=== PATIENT | female | born 1990 | race Caucasian/White ===

== ENCOUNTER → 2017-01-24 | Outpatient (CLI) | payer OTHER ==
--- NOTE | 2017-01-24 15:51 | US ---
EXAMINATION TYPE: US OB anatomy transabd DATE OF EXAM: 01/24/2017 3:16 PM COMPARISON: NONE HISTORY: LGA; G1 TECHNIQUE: Transabdominal (TA) EXAM MEASUREMENTS: GESTATIONAL AGE / DATING Physician Established: (35 weeks/1 day) EDC: 02/27/2017 Dates by LMP: unsure Dates by First Scan: at Physician Office setting Dates by Current Scan for: (35 weeks/3 days) EDC: 02/25/2017 SURVEY IUP: Single PLACENTA: fundal posterior PREVIA: No previa JETHRO: 16.7 cm Normal CERVICAL LENGTH (transabdominal: norm > 3.0cm): 3.2 cm BIOMETRY PRESENTATION: Vertex LIE: Longitudinal BPD: 9.0 cm 36 weeks / 2 days HC: 32.3 cm 36 weeks / 3 days AC: 31.0 cm 34 weeks / 6 days FL: 6.92 cm 35 weeks / 4 days ESTIMATED WEIGHT IN GRAMS: 2659.0 grams ESTIMATED WEIGHT IN LBS/OZ: 5 lbs. 14 oz. WEIGHT PERCENTAGE BASED ON ESTABLISHED DATE: 53.8 % HC/AC: 1.04 FL/AC: 22.34 HEART RATE: 128 bpm RHYTHM: Normal ANATOMY SEEN (within normal limits): * Lateral Vent (< 1 cm) 0.7 cm Midline Falx Four Chamber Heart Stomach Situs Nose / Lips Diaphragm Kidneys (bilateral) Bladder Three Vessel Cord Longitudinal Spine Transverse Spine Legs (bilateral) ANATOMY SEEN (does not appear within normal limits): ANATOMY NOT SEEN: due bone shadowing, head low at cervix, and crowding * Cisterna Magna (< 1.1 cm) cm * Nuchal Fold (< 0.6 cm) cm * Cerebellum (varies with age) cm Choroid Plexus (bilateral) Cavus Septi Pellucidi Outflow tracts: LVOT/RVOT Arms (bilateral) Cord Insert IMPRESSION: Single, viable IUP,35 weeks/3 days,EDC: 02/25/2017, HR 128bpm. Limited anatomy assessment due to adva nced gestational age.
== END | disposition home or self-care (01) ==
LOC: RADUSWWP 14:22
PROVIDERS: ATTEND Obstetrics & Gynecology
DX: O36.63X0 Maternal care for excessive fetal growth, third trimester, not applicable or unspecified (principal); Z3A.35 35 weeks gestation of pregnancy
CPT/HCPCS: 76811

== ENCOUNTER 2017-02-22 06:12 | Inpatient (IN) | payer OTHER ==
--- NOTE | 2017-02-21 17:06 | P.HPOB ---
History of Present Illness H&P Date: 02/21/17 Chief Complaint: Induction of labor This is a 26 y.o. female, 1, para 0, with an estimated date of confinement of 02/27/2017, estimated gestational age of 39-2/7 weeks, who presents to L&D for induction of labor. She has good movement. She has been having lower cramping and lots of back pain. course has been uncomplicated. labs: GC/Chlamydia-neg Toxoplasma-neg Syphilis antibody-neg HIV-NR Blood type-O+ Antibody screen-neg Hepatitis B surface antigen-neg Rubella-immune Quad screen-neg 1 hr. GTT-96 GBS-neg OB Hx: 1st Birth Attendant Hx: No hx STDs Review of Systems Gastrointestinal: Reports abdominal pain (lower cramping) Genitourinary: Reports pelvic pain, Reports Musculoskeletal: bilateral: foot swelling Past Medical History Past Medical History: No Reported History History of Any Multi-Drug Resistant Organisms: None Reported Past Surgical History: Tonsillectomy Additional Past Surgical History / Comment(s): SINUS SURGERY; [place] teeth Past Psychological History: No Psychological Hx Reported Smoking Status: Never smoker Past Alcohol Use History: None Reported Past Drug Use History: None Reported Medications and Allergies Home Medications Medication Instructions Recorded Confirmed Type Cetirizine HCl [Zyrtec] 10 mg PO DAILY 07/24/16 07/24/16 History Allergies Allergy/AdvReac Type Severity Reaction Status Date / Time No Known Allergies Allergy Verified 07/24/16 20:09 Exam Osteopathic Statement: *. No significant issues noted on an osteopathic structural exam other than those noted in the History and Physical/Consult. HEENT: within normal limits Heart: regular rate and rhythm Lungs: clear to auscultation bilaterally Abdomen: , non-tender Cervix: 2 cm/70%/-1, mid position heart tones: 140's by doppler Extremities: 1+ pitting edema Assessment and Plan (1) 39 weeks gestation of Status: Acute Plan: Proceed with oxytocin induction of labor. Expectant management. Epidural anesthesia if desired.
[2017-02-22] MEDS ORDERED: LIDOCAINE 1% (PF) 10 MG/ML (30 ML SDV) SQ PRN (06:26)
[2017-02-22] MEDS ORDERED: METHYLERGONOVINE 0.2 MG/ML 1 ML AMP IM PRN (06:26)
[2017-02-22] MEDS ORDERED: LIDOCAINE 1% 20 ML VIAL (10MG/ML) FOR IV START INTRADERMA PRN (06:26)
[2017-02-22] MEDS ORDERED: OXYTOCIN 10 UNIT/ML 1 ML VIAL IM PRN (06:26)
[2017-02-22] MEDS ORDERED: TERBUTALINE 1 MG/ML VIAL SQ PRN (06:26)
[2017-02-22] MEDS ORDERED: CARBOPROST TROMETHAMINE 250 MCG/ML 1 ML AMP IM PRN (06:26)
[2017-02-22 06:33] LABS: Basophils % (A) 0 %; CH 27.8; Eosinophils # (A) 0.2 k/uL (0-0.7); Eosinophils % (A) 2 %; HCT 35.2 % (34.0-46.0); HDW 3.06; HGB 11.1 gm/dL (11.4-16.0); Hypochromasia Slight; Luc # (Auto) 0.24; Luc % (Auto) 2; Lymphocytes # (A) 2.2 k/uL (1.0-4.8); Lymphocytes % (A) 22 %; MCH 27.5 pg (25.0-35.0); MCHC 31.6 g/dL (31.0-37.0); Mean Platelet Volume 7.9; Monocytes # (A) 0.4 k/uL (0-1.0); Monocytes % (A) 4 %; Neutrophils % (A) 69 %; RBC 4.04 m/uL (3.80-5.40); RDW 13.8 % (11.5-15.5); WBC 10.2 k/uL (3.8-10.6); WBC (Perox) 10.29
[2017-02-22] MEDS ORDERED: OXYTOCIN 30 UNITS/500 ML NS 30 UNIT in SALINE 1 500ML.BAG IV SCH (06:45)
[2017-02-22] MEDS: LACTATED RINGERS 1,000 ML IV SCH ×2 (06:49→11:22)
[2017-02-22] MEDS ORDERED: fentaNYL (PF) 50 MCG/ML 5 ML AMP ONE (11:12)
[2017-02-22] MEDS ORDERED: BUPIVACAINE (PF) 0.25% 30 ML VIAL ONE (11:12)
[2017-02-22] MEDS ORDERED: SODIUM CHLORIDE 0.9% 100 ML BAG ONE (11:12)
[2017-02-22] MEDS ORDERED: BUPIVACAINE (PF) 0.25% 25 ML, fentaNYL (PF) 200 MCG in SODIUM CHLORIDE 0.9% 71 ML EPIDURAL ONE (11:27)
[2017-02-22] MEDS ORDERED: diphenhydrAMINE 50 MG CAP PO PRN (16:44)
[2017-02-22] MEDS ORDERED: SIMETHICONE 80 MG CHEWABLE PO PRN (16:44)
[2017-02-22] MEDS ORDERED: diphenhydrAMINE 25 MG CAP PO PRN (16:44)
[2017-02-22] MEDS ORDERED: ACETAMINOPHEN TAB 325 MG TAB PO PRN (16:44)
[2017-02-22] MEDS ORDERED: BENZOCAINE/MENTHOL SPRAY 1 GM/SPRAY AEROSOL TOPICAL PRN (16:44)
[2017-02-22] MEDS ORDERED: WITCH HAZEL 1 EACH MED..PAD TOPICAL PRN (16:44)
[2017-02-22] MEDS ORDERED: Acetaminophen-Codeine 300-30mg TAB PO PRN ×2 (16:44)
[2017-02-22] MEDS ORDERED: ZOLPIDEM 5 MG TAB PO PRN (16:44)
[2017-02-22] MEDS ORDERED: HYDROCORTISONE 2.5% RECTAL CREAM 30 GM TUBE RECTAL PRN (16:44)
[2017-02-22] MEDS ORDERED: diphenhydrAMINE 50 MG/ML 1 ML VIAL IVP PRN ×2 (16:44)
[2017-02-22] MEDS ORDERED: LANOLIN CREAM 5 GM TUBE TOPICAL PRN (16:44)
--- NOTE | 2017-02-22 16:56 | P.PROBDLV ---
Vaginal Delivery Note - . Vaginal Delivery Note: The patient progressed to complete dilation after oxytocin induction of labor and artificial rupture membranes with clear fluid noted. She did receive epidural anesthesia. After reaching complete dilation she began pushing. Infant's head came to a crown. Perineum was anesthetized with 1% lidocaine and a midline episiotomy was cut. With one further push, the 's head delivered across the perineum followed by the anterior shoulder. Nose and mouth were bulb suctioned at the perineum. With one remaining push, the remainder the infant easily delivered and was placed on mother's abdomen. Brisk cry was noted immediately. Cord was clamped and cut and infant was taken to warmer for evaluation. A viable male infant was noted with scores of 9 at 1 minute and 9 at 5 minutes and weight of 8 lbs. 0 oz. Placenta delivered shortly thereafter, intact, with a three-vessel cord. Uterus contracted fairly well after oxytocin was given and uterine massage was carried out. Inspection of the perineum revealed a midline episiotomy with no further extension. This area was anesthetized with 1% lidocaine and then sutured with 3 -0 and 2-0 Vicryl suture in the usual multilayer fashion. Estimated blood loss was approximate 200 mL's. Both mother and infant are in stable condition.
[2017-02-22] MEDS: IBUPROFEN 600 MG TAB PO PRN (16:58)
[2017-02-22] MEDS: SENNOSIDES-DOCUSATE SODIUM 1 EACH TAB PO SCH (20:06)
[2017-02-22] MEDS ORDERED: IBUPROFEN 600 MG TAB PO ONE (23:50)
[2017-02-23] MEDS: IBUPROFEN 600 MG TAB PO PRN ×2 (06:59→13:08)
[2017-02-23] MEDS: SENNOSIDES-DOCUSATE SODIUM 1 EACH TAB PO SCH (07:33)
[2017-02-23 07:34] LABS: Basophils % (A) 0 %; CH 27.2; CHCM 31.4; Eosinophils # (A) 0.1 k/uL (0-0.7); Eosinophils % (A) 0 %; HCT 32.2 % (34.0-46.0); HDW 3.01; HGB 10.3 gm/dL (11.4-16.0); Hypochromasia Moderate; Luc # (Auto) 0.36; Luc % (Auto) 2; Lymphocytes # (A) 2.8 k/uL (1.0-4.8); Lymphocytes % (A) 17 %; MCH 27.6 pg (25.0-35.0); MCHC 31.8 g/dL (31.0-37.0); MCV 86.8 fL (80.0-100.0); Mean Platelet Volume 7.5; Monocytes # (A) 0.7 k/uL (0-1.0); Monocytes % (A) 4 %; Neutrophils % (A) 76 %; RBC 3.72 m/uL (3.80-5.40); RDW 13.6 % (11.5-15.5); WBC 17.1 k/uL (3.8-10.6); WBC (Perox) 17.89
--- NOTE | 2017-02-23 08:58 | P.DS ---
Providers Date of admission: 02/22/17 06:12 Expected date of discharge: 02/23/17 Attending physician: Sophie Mendoza Primary care physician: Paul Pringleeldor - Discharge Diagnosis(es) (1) 39 weeks gestation of Current Visit: Yes Status: Acute Hospital Course: This is a 26-year-old female 1 para 0 at 39-2/7 weeks who presented for induction of labor. She underwent oxytocin induction of labor and delivered vaginally a viable male on 02/22/2017 with scores of 9 at 1 minute and 9 at 5 minutes and infant weight of 8 lbs. 0 oz. Post course has been uncomplicated. She is breast-feeding. Lochia is decreasing. Pain is fairly well controlled with ibuprofen. She is breast-feeding. Vital signs are stable. Abdomen is soft with fundus firm and nontender. Extremities show negative Homans. Impression is status post vaginal delivery day #1. Plan is to discharge home today. Routine instructions are given. She is advised to follow up in the office in 6 weeks for a check. She will be given a prescription for ibuprofen. She already has a breast pump at home. She is advised to call the office if she has any further questions or concerns prior to her appointment time. Procedures: Oxytocin induction of labor Spontaneous vaginal delivery of a viable male infant on 02/22/2017 Patient Condition at Discharge: Stable Plan - Discharge Summary New Discharge Prescriptions: Ibuprofen [Motrin] 600 mg PO Q6HR PRN #60 tab PRN Reason: Mild Pain Or Fever >= 100.5 Discharge Medication List Cetirizine HCl [Zyrtec] 10 mg PO DAILY 07/24/16 [History] Ibuprofen [Motrin] 600 mg PO Q6HR PRN #60 tab 02/23/17 [Rx] Follow up Appointment(s)/Referral(s): Sophie Mendoza DO [Doctor of Osteopathic Medicine] - 6 Weeks Activity/Diet/Wound Care/Special Instructions: Instructions 1. Do not begin any exercise program for 3 weeks. 2. Do not resume sexual relations for 3 weeks or longer if uncomfortable. 3. You may take tub baths or showers at any time. 4. You may use tampons if desired after 3 weeks. 5. Keep the area of episiotomy (stitches) clean and dry. 6. If you are not nursing, wear a good fitting, supportive bra during the day and limit fluid intake for at least 1 week to prevent breast engorgement. 7. Call the office, [phone], within the next week to make appointment for your 6 week checkup if it has not already been made. 8. Report any of the following occurrences to the doctor promptly: a. Heavy, excessive bleeding b. Chills, fever c. Burning or frequency of urination d. Pain or redness and breasts if nursing e. Increasing pain or swelling in episiotomy (stitches). In addition to the above instructions, the following additional should be followed: 1. No heavy lifting or straining (exercising) until after 6 week checkup. 2. Keep abdominal incision clean and dry: You may wear a dressing if more comfortable. 3. Make office appointment for 10 days after going home or as instructed by her doctor. Discharge Disposition: HOME SELF-CARE
[2017-02-23 12:11] VITALS: BP 145/75; PULSE 81; RESP 18; TEMP 98.2
== END 2017-02-23 17:00 | disposition home or self-care (01) | DRG 775 ==
LOC: 4FBP 06:12
PROVIDERS: ADMIT Obstetrics & Gynecology; ATTEND Obstetrics & Gynecology
PROC: 10E0XZZ Delivery of Products of Conception, External Approach (ICD-10-PCS; principal; 2017-02-22)
PROC: 0W8NXZZ Division of Female Perineum, External Approach (ICD-10-PCS; 2017-02-22)
PROC: 10907ZC Drainage of Amniotic Fluid, Therapeutic from Products of Conception, Via Natural or Artificial Opening (ICD-10-PCS; 2017-02-22)
PROC: 3E033VJ Introduction of Other Hormone into Peripheral Vein, Percutaneous Approach (ICD-10-PCS; 2017-02-22)
PROC: 3E0S3NZ Introduction of Analgesics, Hypnotics, Sedatives into Epidural Space, Percutaneous Approach (ICD-10-PCS; 2017-02-22)
DX: O80 Encounter for full-term uncomplicated delivery (principal); Z37.0 Single live birth; Z3A.39 39 weeks gestation of pregnancy; Z79.899 Other long term (current) drug therapy
CPT/HCPCS: 85025; 88307

== ENCOUNTER → 2019-01-29 | Outpatient (CLI) | payer OTHER ==
[2019-01-29 17:43] LABS: HCG,Quantitative Serum <2.4 mIU/mL
== END ==
LOC: LABWHC1 16:39
PROVIDERS: ATTEND Obstetrics & Gynecology
DX: N92.6 Irregular menstruation, unspecified (principal)
CPT/HCPCS: 36415; 84439; 84443; 84702

== ENCOUNTER 2019-09-15 15:28 | Emergency (ER) | payer OTHER ==
[2019-09-15 15:53] VITALS: TEMP 97.8
[2019-09-15] MEDS ORDERED: SODIUM CHLORIDE 0.9% 500 ML 500 ML IV STA (16:13)
[2019-09-15] MEDS ORDERED: METOCLOPRAMIDE 5 MG/ML 2 ML VIAL IVP STA (16:13)
[2019-09-15] MEDS ORDERED: diphenhydrAMINE 50 MG/ML 1 ML VIAL IVP STA (16:13)
[2019-09-15] MEDS ORDERED: SODIUM CHLORIDE 0.9% 1,000 ML IV STA (16:13)
[2019-09-15 16:43] LABS: Basophils # (A) 0.1 k/uL (0-0.2); Basophils % (A) 1 %; Eosinophils # (A) 0.1 k/uL (0-0.7); Eosinophils % (A) 2 %; HCT 38.2 % (34.0-46.0); HGB 12.9 gm/dL (11.4-16.0); Lymphocytes # (A) 1.3 k/uL (1.0-4.8); Lymphocytes % (A) 14 %; MCH 28.9 pg (25.0-35.0); MCHC 33.7 g/dL (31.0-37.0); MCV 85.5 fL (80.0-100.0); Mean Platelet Volume 5.9; Monocytes # (A) 0.6 k/uL (0-1.0); Monocytes % (A) 6 %; Neutrophils # (A) 7.1 k/uL (1.3-7.7); Neutrophils % (A) 76 %; Platelet Count 249 k/uL (150-450); RBC 4.46 m/uL (3.80-5.40); RDW 13.3 % (11.5-15.5); WBC 9.4 k/uL (3.8-10.6)
[2019-09-15 16:48] LABS: Amorphous Sediment,Urine Rare /hpf; Appearance,Urine Cloudy (Clear); Bilirubin,Urine Negative (Negative); Blood,Urine Trace (Negative); Color,Urine Yellow; Glucose,Urine (UA) Negative (Negative); Ketones,Urine 3+ (Negative); Leukocyte Esterase,Urine Moderate (Negative); Mucus,Urine Many /hpf; Nitrite,Urine Negative (Negative); Protein,Urine 1+ (Negative); RBC,Urine 7 /hpf (0-5); Squamous Epithelial Cell,Urine 8 /hpf (0-4); WBC,Urine 10 /hpf (0-5)
[2019-09-15 16:53] LABS: ALT 24 U/L (9-52); AST 15 U/L (14-36); African American GFR (CKD) >90 (>60 ml/min/1.73 sqM); Albumin 4.1 g/dL (3.5-5.0); Alkaline Phosphatase 91 U/L (38-126); Amylase 35 U/L (30-110); Anion Gap 10 mmol/L; Blood Urea Nitrogen 7 mg/dL (7-17); Calcium 9.3 mg/dL (8.4-10.2); Carbon Dioxide 22 mmol/L (22-30); Chloride 105 mmol/L (98-107); Glucose 91 mg/dL (74-99); Potassium 3.8 mmol/L (3.5-5.1); Sodium 137 mmol/L (137-145); Total Bilirubin 0.5 mg/dL (0.2-1.3); Total Protein 7.2 g/dL (6.3-8.2)
[2019-09-15] MEDS ORDERED: DEXTROSE 5% IN WATER 1,000 ML IV SCH (17:15)
--- NOTE | 2019-09-15 17:15 | ED ---
Nausea/Vomiting/Diarrhea HPI - General Chief complaint: Nausea/Vomiting/Diarrhea Stated complaint: vomiting/10 wks preg Time Seen by Provider: 09/15/19 15:56 Source: patient Mode of arrival: ambulatory Limitations: no limitations - History of Present Illness Initial comments: 29-year-old female patient presents to the emergency department today for evalu ation of nausea and vomiting. Patient is 10 weeks with her second . Patient states she's been unable to keep down any food or fluids for the last 3 days. Patient states she is having some mild low back pain but denies any abdominal pain, abnormal vaginal bleeding, or abnormal discharge. Patient does have an appointment with her OCEANOGRAPHER ASSISTANT Dr. Mendoza tomorrow. Patient states that she did have severe morning sickness with her last as well. She denies taking any medication for her symptoms. She denies fever or chills but denies any recent travel or sick contacts. She denies diarrhea or constipation. Patient denies any recent rash, shortness breath, chest pain, cons tipation, back pain, numbness, tingling, dizziness, weakness, headache, visual changes, or any other complaints. Patient does report frequency of urination. - Related Data Home Medications Medication Instructions Recorded Confirmed Cetirizine HCl [Zyrtec] 10 mg PO DAILY 07/24/16 09/15/19 Uzy-[id number] Acid 1 cap PO DAILY 09/15/19 09/15/19 [-U Capsule (formulary)] Previous Rx's Medication Instructions Recorded Metoclopramide [Reglan] 10 mg PO Q8H PRN #10 tab 09/15/19 Allergies Allergy/AdvReac Type Severity Reaction Status Date / Time No Known Allergies Allergy Verified 09/15/19 17:46 Review of Systems ROS Statement: Those systems with pertinent positive or pertinent negative responses have been documented in the HPI. ROS Other: All systems not noted in ROS Statement are negative. Past Medical History Past Medical History: No Reported History History of Any Multi-Drug Resistant Organisms: None Reported Past Surgical History: Tonsillectomy Additional Past Surgical History / Comment(s): SINUS SURGERY; [place] teeth Past Anesthesia/Blood Transfusion Reactions: No Reported Reaction Past Psychological History: No Psychological Hx Reported Smoking Status: Never smoker Past Alcohol Use History: None Reported Past Drug Use History: None Reported - Past Family History Mother Family Medical History: No Reported History General Exam Limitations: no limitations General appearance: alert, in no apparent distress, other (This is a well- developed, well-nourished adult female patient in no acute distress. Vital signs upon presentation are temperature 97.8F, pulse 71, respirations 19, blood pressure 122/68, pulse ox 100% on room air.) Eye exam: Present: normal appearance, PERRL, EOMI. Absent: scleral icterus, conjunctival injection, periorbital swelling ENT exam: Present: normal exam, normal oropharynx, mucous membranes moist Respiratory exam: Present: normal lung sounds bilaterally. Absent: respiratory distress, wheezes, rales, rhonchi, stridor Cardiovascular Exam: Present: regular rate, normal rhythm, normal heart sounds. Absent: systolic murmur, diastolic murmur, rubs, gallop, clicks GI/Abdominal exam: Present: soft, normal bowel sounds. Absent: distended, tenderness, guarding, rebound, rigid Back exam: Present: normal inspection. Absent: CVA tenderness (R), CVA tenderness (L) Neurological exam: Present: alert, oriented X3, CN II-XII intact Psychiatric exam: Present: normal affect, normal mood Skin exam: Present: warm, dry, intact, normal color. Absent: rash Course Vital Signs 09/15/19 09/15/19 15:51 19:14 Temperature 97.8 F 97.8 F Pulse Rate 71 72 Respiratory 19 18 Rate Blood Pressure 122/68 114/71 O2 Sat by Pulse 100 98 Oximetry Medical Decision Making - Medical Decision Making 29-year-old female patient presents to the emergency department today for evaluation of nausea and vomiting in . Patient denies any abdominal pain, vaginal bleeding, or discharge. Physical examination reveals soft nontender abdomen. Labs reviewed and are unremarkable. She did have 3+ ketones in the urine. Urine has 10 wbc but there is also contamination. No bacteria. Will send this for culture. Patient did receive IV fluids here in the emergency department. She is feeling better upon reevaluation. She was able to tolerate beef broth and Jell-O. She'll be discharged at this time to follow-up with her OCEANOGRAPHER ASSISTANT for recheck tomorrow. Return parameters discussed in detail. She verbalizes understanding and agrees with this plan. - Lab Data Result diagrams: 09/15/19 16:36 09/15/19 16:36 Lab Results 09/15/19 09/15/19 09/15/19 Range/Units 16:36 16:36 16:36 WBC 9.4 (3.8-10.6) k/uL RBC 4.46 (3.80-5.40) m/uL Hgb 12.9 (11.4-16.0) gm/dL Hct 38.2 (34.0-46.0) % MCV 85.5 (80.0-100.0) fL MCH 28.9 (25.0-35.0) pg MCHC 33.7 (31.0-37.0) g/dL RDW 13.3 (11.5-15.5) % Plt Count 249 (150-450) k/uL Neutrophils % 76 % Lymphocytes % 14 % Monocytes % 6 % Eosinophils % 2 % Basophils % 1 % Neutrophils # 7.1 (1.3-7.7) k/uL Lymphocytes # 1.3 (1.0-4.8) k/uL Monocytes # 0.6 (0-1.0) k/uL Eosinophils # 0.1 (0-0.7) k/uL Basophils # 0.1 (0-0.2) k/uL Sodium 137 (137-145) mmol/L Potassium 3.8 (3.5-5.1) mmol/L Chloride 105 (98-107) mmol/L Carbon Dioxide 22 (22-30) mmol/L Anion Gap 10 mmol/L BUN 7 (7-17) mg/dL Creatinine 0.55 (0.52-1.04) mg/dL Est GFR (CKD-EPI)AfAm >90 (>60 ml/min/1.73 sqM) Est GFR (CKD-EPI)NonAf >90 (>60 ml/min/1.73 sqM) Glucose 91 (74-99) mg/dL Calcium 9.3 (8.4-10.2) mg/dL Total Bilirubin 0.5 (0.2-1.3) mg/dL AST 15 (14-36) U/L ALT 24 (9-52) U/L Alkaline Phosphatase 91 (38-126) U/L Total Protein 7.2 (6.3-8.2) g/dL Albumin 4.1 (3.5-5.0) g/dL Amylase 35 (30-110) U/L Lipase 31 (23-300) U/L Urine Color Yellow Urine Appearance Cloudy H (Clear) Urine pH 6.0 (5.0-8.0) Ur Specific [place] 1.030 (1.001-1.035) Urine Protein 1+ H (Negative) Urine Glucose (UA) Negative (Negative) Urine Ketones 3+ H (Negative) Urine Blood Trace H (Negative) Urine Nitrite Negative (Negative) Urine Bilirubin Negative (Negative) Urine Urobilinogen 2.0 (<2.0) mg/dL Ur Leukocyte Esterase Moderate H (Negative) Urine RBC 7 H (0-5) /hpf Urine WBC 10 H (0-5) /hpf Ur Squamous Epith Cells 8 H (0-4) /hpf Amorphous Sediment Rare H (None) /hpf Urine Mucus Many H (None) /hpf Disposition Clinical Impression: Hyperemesis Disposition: HOME SELF-CARE Condition: Good Instructions (If sedation given, give patient instructions): Hyperemesis Gravidarum (ED) Additional Instructions: Start with clear liquid diet and advance as tolerated. Take medications as directed. Follow-up with your OCEANOGRAPHER ASSISTANT for recheck as you have planned. Return to the emergency department immediately for any new, worsening, or concerning symptoms. Prescriptions: Metoclopramide [Reglan] 10 mg PO Q8H PRN #10 tab PRN Reason: Vomiting Is patient prescribed a controlled substance at d/c from ED?: No Referrals: Paul Marrero DO [Primary Care Provider] - 1-2 days
[2019-09-15 19:15] VITALS: BP 114/71; PULSE 72; RESP 18
== END 2019-09-15 19:15 | disposition home or self-care (01) ==
LOC: EC 15:28
DX: O21.0 Mild hyperemesis gravidarum (principal); Z3A.10 10 weeks gestation of pregnancy
CPT/HCPCS: 36415; 80053; 82150; 83690; 85025; 81001; 87086; 99284; 96374; 96375; 96361 ×2; J1200; J2765

== ENCOUNTER 2019-10-05 17:30 | Emergency (ER) | payer OTHER ==
[2019-10-05 18:01] VITALS: BP 120/65; PULSE 83; RESP 18; TEMP 98.4
[2019-10-05] MEDS ORDERED: PYRIDOXINE 100 MG/ML 1 ML VIAL IVP STA ×2 (18:56)
[2019-10-05] MEDS ORDERED: SODIUM CHLORIDE 0.9% 1,000 ML IV STA (19:00)
--- NOTE | 2019-10-05 19:32 | ED ---
General Adult HPI - General Chief complaint: Nausea/Vomiting/Diarrhea Stated complaint: Dehydration Time Seen by Provider: 10/05/19 18:30 Source: patient, RN notes reviewed, old records reviewed Mode of arrival: ambulatory Limitations: no limitations - History of Present Illness Initial comments: 29-year-old presents to ED nausea and vomiting. Patient reports that for the last 2 days she has not been able to keep anything down. Denies abdominal p ain. Denies any vaginal bleeding. Reports that she. On a ketone strip at home and she is positive for ketones. Denies any other complaints. Systemic: Pt denies fatigue, fever/chills, rash. Pt denies weakness, night sweats, weight loss. Neuro: Pt denies headache, visual disturbances, syncope or pre-syncope. HEENT: Pt denies ocular discharge or irritation, otalgia, rhinorrhea, pharyngitis or notable lymphadenopathy. Cardiopulmonary: Pt denies chest pain, SOB, heart palpitations, dyspnea on exertion. Abdominal/GI: Pt denies abdominal pain, n/v/d. : Pt denies dysuria, burning w/ urination, frequency/urgency. Denies new onset urinary or bowel incontinence. MSK: Pt denies myalgia, loss of strength or function in extremities. Neuro: Pt denies new onset weakness, paresthesias. - Related Data Home Medications Medication Instructions Recorded Confirmed Cetirizine HCl [Zyrtec] 10 mg PO DAILY 07/24/16 09/15/19 Luc-[id number]-Zfesd Acid 1 cap PO DAILY 09/15/19 09/15/19 [-U Capsule (formulary)] Previous Rx's Medication Instructions Recorded Metoclopramide [Reglan] 10 mg PO Q8H PRN #10 tab 09/15/19 Cephalexin [Keflex] 500 mg PO Q12HR 5 Days #10 cap 10/05/19 Allergies Allergy/AdvReac Type Severity Reaction Status Date / Time No Known Allergies Allergy Verified 10/05/19 18:01 Review of Systems ROS Statement: Those systems with pertinent positive or pertinent negative responses have been documented in the HPI. ROS Other: All systems not noted in ROS Statement are negative. Past Medical History Past Medical History: No Reported History History of Any Multi-Drug Resistant Organisms: None Reported Past Surgical History: Tonsillectomy Additional Past Surgical History / Comment(s): SINUS SURGERY; [place] teeth Past Anesthesia/Blood Transfusion Reactions: No Reported Reaction Past Psychological History: No Psychological Hx Reported Smoking Status: Never smoker Past Alcohol Use History: None Reported Past Drug Use History: None Reported - Past Family History Mother Family Medical History: No Reported History General Exam - General Exam Comments Initial Comments: Constitutional: NAD, AOX3, Pt has pleasant affect. HEENT: NC/AT, trachea midline, neck supple, no lymphadenopathy. Posterior p harynx non erythematous, without exudates. External ears appear normal, without discharge. Mucous membranes moist. Eyes PERRLA, EOM intact. There is no scleral icterus. No pallor noted. Cardiopulmonary: RRR, no murmurs, rubs or gallops, no JVD noted. Lungs CTAB in anterior and posterior mattson. No peripheral edema. Abdominal exam: Abdomen soft and non-distended. Abdomen non-tender to palpation in all 4 quadrants. Bowel sounds active in LLQ. No hepatosplenomegaly. No ecchymosis Neuro: CN II-XII grossly intact. No nuchal rigidity. No raccon eyes, no silverman sign, no hemotympanum. No cervical spinal tenderness. MSK: No posterior calf tenderness bilaterally, homans sign negative bilaterally. Posterior tibialis and radial pulse +2 bilaterally. Sensation intact in upper and lower extremities. Full active ROM in upper and lower extremities, 5/5 stregnth. Limitations: no limitations Course Vital Signs 10/05/19 17:58 Temperature 98.4 F Pulse Rate 83 Respiratory 18 Rate Blood Pressure 120/65 O2 Sat by Pulse 98 Oximetry Medical Decision Making - Medical Decision Making 29-year-old presents to ED nausea and vomiting. Patient reports that for the last 2 days she has not been able to keep anything down. Denies abdominal pain. Denies any vaginal bleeding. Reports that she. On a ketone strip at home and she is positive for ketones. Denies any other complaints. Visual signs stable, afebrile. Physical examacute pathology. Abdomen soft, nontender. Labs MSK shows revealed mild leukocytosis of 10.8. Otherwise noncompressive. UA displayed +2 ketones, asymptomatic bacteriuria. Bedside ultrasound performed by myself as well as attending physician Dr. Francis was reassuring. Patient feeling much improved with rehydration of 1.5 L normal saline. Not have any nausea or vomiting. Patient will be discharged will follow-up with primary care per hour return to ER physician worsens. Case discussed with Dr. Francis. - Lab Data Result diagrams: 10/05/19 19:00 10/05/19 19:00 Lab Results 10/05/19 10/05/19 10/05/19 Range/Units 18:46 18:46 19:00 WBC 10.8 H (3.8-10.6) k/uL RBC 4.61 (3.80-5.40) m/uL Hgb 13.4 (11.4-16.0) gm/dL Hct 39.5 (34.0-46.0) % MCV 85.6 (80.0-100.0) fL MCH 29.0 (25.0-35.0) pg MCHC 33.8 (31.0-37.0) g/dL RDW 13.1 (11.5-15.5) % Plt Count 298 (150-450) k/uL Neutrophils % 70 % Lymphocytes % 23 % Monocytes % 4 % Eosinophils % 2 % Basophils % 1 % Neutrophils # 7.6 (1.3-7.7) k/uL Lymphocytes # 2.5 (1.0-4.8) k/uL Monocytes # 0.4 (0-1.0) k/uL Eosinophils # 0.2 (0-0.7) k/uL Basophils # 0.1 (0-0.2) k/uL Sodium (137-145) mmol/L Potassium (3.5-5.1) mmol/L Chloride (98-107) mmol/L Carbon Dioxide (22-30) mmol/L Anion Gap mmol/L BUN (7-17) mg/dL Creatinine (0.52-1.04) mg/dL Est GFR (CKD-EPI)AfAm (>60 ml/min/1.73 sqM) Est GFR (CKD-EPI)NonAf (>60 ml/min/1.73 sqM) Glucose (74-99) mg/dL Calcium (8.4-10.2) mg/dL Total Bilirubin (0.2-1.3) mg/dL AST (14-36) U/L ALT (9-52) U/L Alkaline Phosphatase (38-126) U/L Total Protein (6.3-8.2) g/dL Albumin (3.5-5.0) g/dL Urine Color Yellow Urine Appearance Cloudy H (Clear) Urine pH 7.5 (5.0-8.0) Ur Specific [place] 1.019 (1.001-1.035) Urine Protein 1+ H (Negative) Urine Glucose (UA) Negative (Negative) Urine Ketones 2+ H (Negative) Urine Blood Negative (Negative) Urine Nitrite Negative (Negative) Urine Bilirubin Negative (Negative) Urine Urobilinogen <2.0 (<2.0) mg/dL Ur Leukocyte Esterase Moderate H (Negative) Urine RBC 2 (0-5) /hpf Urine WBC 3 (0-5) /hpf Ur Squamous Epith Cells 5 H (0-4) /hpf Urine Bacteria Occasional H (None) /hpf Hyaline Casts 1 (0-2) /lpf Urine Mucus Many H (None) /hpf Urine HCG, Qual Detected (Not Detectd) 10/05/19 Range/Units 19:00 WBC (3.8-10.6) k/uL RBC (3.80-5.40) m/uL Hgb (11.4-16.0) gm/dL Hct (34.0-46.0) % MCV (80.0-100.0) fL MCH (25.0-35.0) pg MCHC (31.0-37.0) g/dL RDW (11.5-15.5) % Plt Count (150-450) k/uL Neutrophils % % Lymphocytes % % Monocytes % % Eosinophils % % Basophils % % Neutrophils # (1.3-7.7) k/uL Lymphocytes # (1.0-4.8) k/uL Monocytes # (0-1.0) k/uL Eosinophils # (0-0.7) k/uL Basophils # (0-0.2) k/uL Sodium 136 L (137-145) mmol/L Potassium 4.0 (3.5-5.1) mmol/L Chloride 105 (98-107) mmol/L Carbon Dioxide 22 (22-30) mmol/L Anion Gap 9 mmol/L BUN 4 L (7-17) mg/dL Creatinine 0.48 L (0.52-1.04) mg/dL Est GFR (CKD-EPI)AfAm >90 (>60 ml/min/1.73 sqM) Est GFR (CKD-EPI)NonAf >90 (>60 ml/min/1.73 sqM) Glucose 89 (74-99) mg/dL Calcium 9.3 (8.4-10.2) mg/dL Total Bilirubin 0.6 (0.2-1.3) mg/dL AST 20 (14-36) U/L ALT 19 (9-52) U/L Alkaline Phosphatase 93 (38-126) U/L Total Protein 7.0 (6.3-8.2) g/dL Albumin 3.9 (3.5-5.0) g/dL Urine Color Urine Appearance (Clear) Urine pH (5.0-8.0) Ur Specific [place] (1.001-1.035) Urine Protein (Negative) Urine Glucose (UA) (Negative) Urine Ketones (Negative) Urine Blood (Negative) Urine Nitrite (Negative) Urine Bilirubin (Negative) Urine Urobilinogen (<2.0) mg/dL Ur Leukocyte Esterase (Negative) Urine RBC (0-5) /hpf Urine WBC (0-5) /hpf Ur Squamous Epith Cells (0-4) /hpf Urine Bacteria (None) /hpf Hyaline Casts (0-2) /lpf Urine Mucus (None) /hpf Urine HCG, Qual (Not Detectd) Disposition Clinical Impression: Nausea and vomiting during Disposition: HOME SELF-CARE Condition: Stable Instructions (If sedation given, give patient instructions): Nausea and Vo miting in (ED) Additional Instructions: Follow-up with [facility] ANALYST tomorrow. Return to ER if condition worsens. Take meidcation as directed. Prescriptions: Cephalexin [Keflex] 500 mg PO Q12HR 5 Days #10 cap Is patient prescribed a controlled substance at d/c from ED?: No Referrals: Paul Marrero DO [Primary Care Provider] - 1-2 days
[2019-10-05 19:48] LABS: Basophils # (A) 0.1 k/uL (0-0.2); Basophils % (A) 1 %; Eosinophils # (A) 0.2 k/uL (0-0.7); Eosinophils % (A) 2 %; HCT 39.5 % (34.0-46.0); HGB 13.4 gm/dL (11.4-16.0); Lymphocytes # (A) 2.5 k/uL (1.0-4.8); Lymphocytes % (A) 23 %; MCHC 33.8 g/dL (31.0-37.0); MCV 85.6 fL (80.0-100.0); Mean Platelet Volume 5.7; Monocytes # (A) 0.4 k/uL (0-1.0); Monocytes % (A) 4 %; Neutrophils # (A) 7.6 k/uL (1.3-7.7); Neutrophils % (A) 70 %; Platelet Count 298 k/uL (150-450); RBC 4.61 m/uL (3.80-5.40); RDW 13.1 % (11.5-15.5); WBC 10.8 k/uL (3.8-10.6)
[2019-10-05 19:52] LABS: Appearance,Urine Cloudy (Clear); Bacteria,Urine Occasional /hpf; Bilirubin,Urine Negative (Negative); Blood,Urine Negative (Negative); Color,Urine Yellow; Glucose,Urine (UA) Negative (Negative); Hyaline Casts,Urine 1 /lpf (0-2); Ketones,Urine 2+ (Negative); Leukocyte Esterase,Urine Moderate (Negative); Mucus,Urine Many /hpf; Nitrite,Urine Negative (Negative); PH, Urine 7.5 (5.0-8.0); Protein,Urine 1+ (Negative); RBC,Urine 2 /hpf (0-5); Specific Gravity,Urine 1.019 (1.001-1.035); Squamous Epithelial Cell,Urine 5 /hpf (0-4); Urobilinogen,Urine <2.0 mg/dL (<2.0); WBC,Urine 3 /hpf (0-5)
[2019-10-05 19:56] LABS: ALT 19 U/L (9-52); AST 20 U/L (14-36); African American GFR (CKD) >90 (>60 ml/min/1.73 sqM); Albumin 3.9 g/dL (3.5-5.0); Alkaline Phosphatase 93 U/L (38-126); Anion Gap 9 mmol/L; Blood Urea Nitrogen 4 mg/dL (7-17); Calcium 9.3 mg/dL (8.4-10.2); Carbon Dioxide 22 mmol/L (22-30); Chloride 105 mmol/L (98-107); Glucose 89 mg/dL (74-99); Non-African American GFR(CKD) >90 (>60 ml/min/1.73 sqM); Sodium 136 mmol/L (137-145); Total Bilirubin 0.6 mg/dL (0.2-1.3)
[2019-10-05] MEDS ORDERED: SODIUM CHLORIDE 0.9% 500 ML 500 ML IV STA (20:09)
[2019-10-05] MEDS ORDERED: CEPHALEXIN 500 MG CAP PO STA (20:33)
[2019-10-05] MEDS ORDERED: CEPHALEXIN 500MG STARTER PACK 4 CAP BTL PO STA (20:33)
== END 2019-10-05 20:57 | disposition home or self-care (01) ==
LOC: EC 17:30
DX: O21.9 Vomiting of pregnancy, unspecified (principal); O99.111 Other diseases of the blood and blood-forming organs and certain disorders involving the immune mechanism complicating pregnancy, first trimester; D72.829 Elevated white blood cell count, unspecified; O99.89 Other specified diseases and conditions complicating pregnancy, childbirth and the puerperium; R82.71 Bacteriuria; R82.4 Acetonuria; Z79.899 Other long term (current) drug therapy; Z3A.11 11 weeks gestation of pregnancy; Z53.8 Procedure and treatment not carried out for other reasons
CPT/HCPCS: 36415; 80053; 85025; 81001; 81025; 99284; 96374; 96361 ×2; J3415

== ENCOUNTER 2019-10-27 18:33 | Emergency (ER) | payer OTHER ==
[2019-10-27] MEDS ORDERED: METOCLOPRAMIDE 5 MG/ML 2 ML VIAL IVP STA ×2 (19:22→22:30)
[2019-10-27] MEDS ORDERED: SODIUM CHLORIDE 0.9% 2,000 ML IV ONE (19:22)
[2019-10-27] MEDS ORDERED: diphenhydrAMINE 50 MG/ML 1 ML VIAL IVP STA (19:22)
[2019-10-27] MEDS ORDERED: ACETAMINOPHEN TAB 325 MG TAB PO STA (19:24)
[2019-10-27 19:39] LABS: Basophils # (A) 0.1 k/uL (0-0.2); Basophils % (A) 1 %; Eosinophils # (A) 0.1 k/uL (0-0.7); Eosinophils % (A) 0 %; HCT 40.1 % (34.0-46.0); HGB 13.7 gm/dL (11.4-16.0); Lymphocytes # (A) 0.8 k/uL (1.0-4.8); Lymphocytes % (A) 7 %; MCH 29.1 pg (25.0-35.0); MCHC 34.1 g/dL (31.0-37.0); MCV 85.3 fL (80.0-100.0); Mean Platelet Volume 7.3; Monocytes # (A) 0.6 k/uL (0-1.0); Monocytes % (A) 5 %; Neutrophils # (A) 10.2 k/uL (1.3-7.7); Neutrophils % (A) 86 %; Platelet Count 262 k/uL (150-450); RDW 13.2 % (11.5-15.5)
[2019-10-27 19:48] LABS: ALT 13 U/L (4-34); AST 21 U/L (14-36); African American GFR (CKD) >90 (>60 ml/min/1.73 sqM); Albumin 3.9 g/dL (3.5-5.0); Alkaline Phosphatase 103 U/L (38-126); Anion Gap 10 mmol/L; Blood Urea Nitrogen 3 mg/dL (7-17); Calcium 9.4 mg/dL (8.4-10.2); Carbon Dioxide 22 mmol/L (22-30); Chloride 104 mmol/L (98-107); Glucose 102 mg/dL (74-99); Non-African American GFR(CKD) >90 (>60 ml/min/1.73 sqM); Potassium 4.1 mmol/L (3.5-5.1); Sodium 136 mmol/L (137-145); Total Bilirubin 0.7 mg/dL (0.2-1.3); Total Protein 7.2 g/dL (6.3-8.2)
--- NOTE | 2019-10-27 20:05 | XR ---
EXAMINATION TYPE: XR chest 2V DATE OF EXAM: 10/27/2019 COMPARISON: NONE HISTORY: Cough and fever TECHNIQUE: 2 views FINDINGS: Heart and mediastinum are normal. Lungs are clear. Diaphragm is normal. Bony thorax appears normal. IMPRESSION: Normal chest.
[2019-10-27 20:07] LABS: Appearance,Urine Cloudy (Clear); Bilirubin,Urine Negative (Negative); Blood,Urine Small (Negative); Color,Urine Yellow; Glucose,Urine (UA) Negative (Negative); Hyaline Casts,Urine 14 /lpf (0-2); Ketones,Urine 3+ (Negative); Leukocyte Esterase,Urine Negative (Negative); Mucus,Urine Many /hpf; Nitrite,Urine Negative (Negative); Protein,Urine 1+ (Negative); RBC,Urine 1 /hpf (0-5); Specific Gravity,Urine 1.023 (1.001-1.035); Squamous Epithelial Cell,Urine 1 /hpf (0-4); WBC,Urine 6 /hpf (0-5)
[2019-10-27 20:47] VITALS: RESP 16; TEMP 98.8
[2019-10-27] MEDS ORDERED: CEPHALEXIN 500 MG CAP PO STA (22:04)
--- NOTE | 2019-10-27 22:30 | ED ---
General Adult HPI - General Chief complaint: Nausea/Vomiting/Diarrhea Stated complaint: 14 wks preg, +flu, vomiting Time Seen by Provider: 10/27/19 18:50 Source: patient Mode of arrival: ambulatory Limitations: no limitations - History of Present Illness Initial comments: The patient is a 29-year-old female who is currently 14 weeks who presents emergency department under direction by her primary care physician. She states that yesterday she started developing fevers which brought up to 103 at home. She admits to a mild unproductive cough. She denies any chest pain or shortness of breath. Denies any abdominal pain. No abnormal vaginal bleeding or discharge. Denies concern for sexually transmitted infections. Denies dysuria, hematuria or difficulty voiding. Denies constipation or melanotic stools. She does report to nausea which has been persistent throughout her however states that it is worse over the past [address] Mendoza in office. She has been taking Diclegis at night for her nausea which has helped. She has Reglan at home for nausea however has not been taking it. She attempted to take Tylenol at home however vomited it back up. She saw her primary care physician in office today. They did place her on Tamiflu even though she was negative for influenza. She went home and when she did not have improvement in her symptoms she called her OB office. It was her OB that has return to the emergency room for further evaluation. She denies any headaches or visual changes. No neck pain or stiffness. There are no alleviating, precipitating or modifying factors - Related Data Home Medications Medication Instructions Recorded Confirmed Cetirizine HCl [Zyrtec] 10 mg PO DAILY 07/24/16 09/15/19 Tur-Meiy-Pamhj Acid 1 cap PO DAILY 09/15/19 09/15/19 [-U Capsule (formulary)] Previous Rx's Medication Instructions Recorded Metoclopramide [Reglan] 10 mg PO Q8H PRN #10 tab 09/15/19 Cephalexin [Keflex] 500 mg PO Q12HR 5 Days #10 cap 10/05/19 Cephalexin [Keflex] 500 mg PO Q12HR #14 cap 10/27/19 Allergies Allergy/AdvReac Type Severity Reaction Status Date / Time No Known Allergies Allergy Verified 10/27/19 18:48 Review of Systems ROS Statement: Those systems with pertinent positive or pertinent negative responses have been documented in the HPI. ROS Other: All systems not noted in ROS Statement are negative. Past Medical History Past Medical History: No Reported History History of Any Multi-Drug Resistant Organisms: None Reported Past Surgical History: Tonsillectomy Additional Past Surgical History / Comment(s): SINUS SURGERY; [place] teeth Past Anesthesia/Blood Transfusion Reactions: No Reported Reaction Past Psychological History: No Psychological Hx Reported Smoking Status: Never smoker Past Alcohol Use History: None Reported Past Drug Use History: None Reported - Past Family History Mother Family Medical History: No Reported History General Exam Limitations: no limitations General appearance: alert, in no apparent distress Head exam: Present: atraumatic, normocephalic, normal inspection Eye exam: Present: normal appearance, PERRL, EOMI. Absent: scleral icterus, conjunctival injection, periorbital swelling ENT exam: Present: normal exam, mucous membranes moist Neck exam: Present: normal inspection. Absent: tenderness, meningismus, lymphadenopathy Respiratory exam: Present: normal lung sounds bilaterally. Absent: respiratory distress, wheezes, rales, rhonchi, stridor Cardiovascular Exam: Present: regular rate, normal rhythm, normal heart sounds. Absent: systolic murmur, diastolic murmur, rubs, gallop, clicks GI/Abdominal exam: Present: soft, normal bowel sounds. Absent: distended, tenderness, guarding, rebound, rigid Extremities exam: Present: normal inspection, full ROM, normal capillary refill. Absent: tenderness, pedal edema, joint swelling, calf tenderness Back exam: Present: normal inspection Neurological exam: Present: alert, oriented X3, CN II-XII intact Psychiatric exam: Present: normal affect, normal mood Skin exam: Present: warm, dry, intact, normal color. Absent: rash Course Vital Signs 10/27/19 10/27/19 10/27/19 18:48 20:45 22:52 Temperature 99.9 F H 98.8 F Pulse Rate 115 H 87 71 Respiratory 20 16 16 Rate Blood Pressure 129/78 111/54 106/63 O2 Sat by Pulse 98 98 100 Oximetry Medical Decision Making - Medical Decision Making Upon arrival the patient is placed into room 11. Her history of physical exam was performed. Peripheral IV is established. The patient is given 10 mg of Reglan, 25 mg of Benadryl and 2 L of normal saline. I did recommend laboratory studies and a urinalysis. CBC shows a white blood cell count of 12. Sodium is 136. Creatinine 0.5. Glucose 102. Urinalysis shows 3+ ketones, small blood, 6 white blood cells, 14 hyalin casts. Insulin to 18. Negative. Chest x-rays performed because of the patient's report of a cough. A chest x-ray is negative. I discussed results with the patient. She is reevaluated and has marked improvement in her symptoms. She has not had any nausea and vomiting since she's been in the emergency department. She feels comfortable going home at this time. She'll continue taking the day Kimani at night. She is to take Reglan during the day as needed for nausea and vomiting. I do attempt to call Dr. Conner who is on-call for Dr. Mendoza. I do not receive a call back. I informed the patient she must call to make an appointment with her B[facility]CHER OPERATOR and be seen later this week. She has any new or worsening symptoms she should return to the emergency room. The patient was in agreement with the treatment plan and she was discharged home in stable condition - Lab Data Result diagrams: 10/27/19 19:00 10/27/19 19:00 Lab Results 10/27/19 10/27/19 10/27/19 Range/Units 19:00 19:00 19:00 WBC 12.0 H (3.8-10.6) k/uL RBC 4.70 (3.80-5.40) m/uL Hgb 13.7 (11.4-16.0) gm/dL Hct 40.1 (34.0-46.0) % MCV 85.3 (80.0-100.0) fL MCH 29.1 (25.0-35.0) pg MCHC 34.1 (31.0-37.0) g/dL RDW 13.2 (11.5-15.5) % Plt Count 262 (150-450) k/uL Neutrophils % 86 % Lymphocytes % 7 % Monocytes % 5 % Eosinophils % 0 % Basophils % 1 % Neutrophils # 10.2 H (1.3-7.7) k/uL Lymphocytes # 0.8 L (1.0-4.8) k/uL Monocytes # 0.6 (0-1.0) k/uL Eosinophils # 0.1 (0-0.7) k/uL Basophils # 0.1 (0-0.2) k/uL Sodium 136 L (137-145) mmol/L Potassium 4.1 (3.5-5.1) mmol/L Chloride 104 (98-107) mmol/L Carbon Dioxide 22 (22-30) mmol/L Anion Gap 10 mmol/L BUN 3 L (7-17) mg/dL Creatinine 0.50 L (0.52-1.04) mg/dL Est GFR (CKD-EPI)AfAm >90 (>60 ml/min/1.73 sqM) Est GFR (CKD-EPI)NonAf >90 (>60 ml/min/1.73 sqM) Glucose 102 H (74-99) mg/dL Plasma Lactic Acid Kamar 0.9 (0.7-2.0) mmol/L Calcium 9.4 (8.4-10.2) mg/dL Total Bilirubin 0.7 (0.2-1.3) mg/dL AST 21 (14-36) U/L ALT 13 (4-34) U/L Alkaline Phosphatase 103 (38-126) U/L Total Protein 7.2 (6.3-8.2) g/dL Albumin 3.9 (3.5-5.0) g/dL Lipase 18 L (23-300) U/L Urine Color Urine Appearance (Clear) Urine pH (5.0-8.0) Ur Specific [facility] (1.001-1.035) Urine Protein (Negative) Urine Glucose (UA) (Negative) Urine Ketones (Negative) Urine Blood (Negative) Urine Nitrite (Negative) Urine Bilirubin (Negative) Urine Urobilinogen (<2.0) mg/dL Ur Leukocyte Esterase (Negative) Urine RBC (0-5) /hpf Urine WBC (0-5) /hpf Ur Squamous Epith Cells (0-4) /hpf Hyaline Casts (0-2) /lpf Urine Mucus (None) /hpf Influenza Type A RNA (Not Detectd) Influenza Type B (PCR) (Not Detectd) 10/27/19 10/27/19 Range/Units 19:30 19:30 WBC (3.8-10.6) k/uL RBC (3.80-5.40) m/uL Hgb (11.4-16.0) gm/dL Hct (34.0-46.0) % MCV (80.0-100.0) fL MCH (25.0-35.0) pg MCHC (31.0-37.0) g/dL RDW (11.5-15.5) % Plt Count (150-450) k/uL Neutrophils % % Lymphocytes % % Monocytes % % Eosinophils % % Basophils % % Neutrophils # (1.3-7.7) k/uL Lymphocytes # (1.0-4.8) k/uL Monocytes # (0-1.0) k/uL Eosinophils # (0-0.7) k/uL Basophils # (0-0.2) k/uL Sodium (137-145) mmol/L Potassium (3.5-5.1) mmol/L Chloride (98-107) mmol/L Carbon Dioxide (22-30) mmol/L Anion Gap mmol/L BUN (7-17) mg/dL Creatinine (0.52-1.04) mg/dL Est GFR (CKD-EPI)AfAm (>60 ml/min/1.73 sqM) Est GFR (CKD-EPI)NonAf (>60 ml/min/1.73 sqM) Glucose (74-99) mg/dL Plasma Lactic Acid Kamar (0.7-2.0) mmol/L Calcium (8.4-10.2) mg/dL Total Bilirubin (0.2-1.3) mg/dL AST (14-36) U/L ALT (4-34) U/L Alkaline Phosphatase (38-126) U/L Total Protein (6.3-8.2) g/dL Albumin (3.5-5.0) g/dL Lipase (23-300) U/L Urine Color Yellow Urine Appearance Cloudy H (Clear) Urine pH 6.0 (5.0-8.0) Ur Specific [facility] 1.023 (1.001-1.035) Urine Protein 1+ H (Negative) Urine Glucose (UA) Negative (Negative) Urine Ketones 3+ H (Negative) Urine Blood Small H (Negative) Urine Nitrite Negative (Negative) Urine Bilirubin Negative (Negative) Urine Urobilinogen 2.0 (<2.0) mg/dL Ur Leukocyte Esterase Negative (Negative) Urine RBC 1 (0-5) /hpf Urine WBC 6 H (0-5) /hpf Ur Squamous Epith Cells 1 (0-4) /hpf Hyaline Casts 14 H (0-2) /lpf Urine Mucus Many H (None) /hpf Influenza Type A RNA Not Detected (Not Detectd) Influenza Type B (PCR) Not Detected (Not Detectd) Disposition Clinical Impression: Nausea and vomiting during , Dehydration, Abnormal urinalysis, Fever Disposition: HOME SELF-CARE Condition: Stable Instructions (If sedation given, give patient instructions): Acute Nausea and Vomiting (ED) Additional Instructions: Please follow-up with your B[facility]CHER OPERATOR in 2-4 days. Return to the emergency room for any new or worsening symptoms Prescriptions: Cephalexin [Keflex] 500 mg PO Q12HR #14 cap Is patient prescribed a controlled substance at d/c from ED?: No Referrals: Paul Marrero DO [Primary Care Provider] - 1-2 days Sophie Mendoza DO [Doctor of Osteopathic Medicine] - 1-2 days Time of Disposition: 22:31
[2019-10-27 22:54] VITALS: BP 106/63; PULSE 71
== END 2019-10-27 23:13 | disposition home or self-care (01) ==
LOC: EC 18:33
DX: O99.282 Endocrine, nutritional and metabolic diseases complicating pregnancy, second trimester (principal); E86.0 Dehydration; O21.9 Vomiting of pregnancy, unspecified; O99.89 Other specified diseases and conditions complicating pregnancy, childbirth and the puerperium; R82.81 Pyuria; R50.9 Fever, unspecified; R31.9 Hematuria, unspecified; R29.898 Other symptoms and signs involving the musculoskeletal system; R05 Cough; Z3A.14 14 weeks gestation of pregnancy
CPT/HCPCS: 99284; 96374; 96375; 96376; 96361 ×3; 36415; 80053; 83605; 83690; 85025; 81001; 87502; 71046; J1200; J2765

== ENCOUNTER → 2020-04-16 | Outpatient (CLI) | payer OTHER | END | disposition home or self-care (01) | LOC: LABWHC1 11:11 | PROVIDERS: ATTEND Obstetrics & Gynecology | DX: Z11.59 Encounter for screening for other viral diseases (principal) ==

== ENCOUNTER 2020-04-19 00:07 | Inpatient (IN) | payer OTHER ==
--- NOTE | 2020-04-18 15:12 | P.HPOB ---
History of Present Illness H&P Date: 04/18/20 Chief Complaint: Induction of labor This is a 29 y.o. female, 2, para 1, with an estimated date of confinement of 04/25/2020, estimated gestational age of 39-1/7 weeks, who presents for induction of labor. She admits to good movement and irregular contractions. has been uncomplicated. labs: Hepatitis B surface antigen-neg RPR-NR Rubella-immune Blood type-O+ Antibody screen-neg Hemoglobin-11.9 Toxoplasma-neg Random glucose-89 1 hr. GTT-77 GBS-neg OB Hx: . 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 Works at [employer]. Review of Systems Constitutional: Denies chills, Denies fever Eyes: denies blurred vision, denies pain Ears, nose, mouth and throat: Denies headache, Denies sore throat Cardiovascular: Denies chest pain, Denies shortness of breath Respiratory: Denies cough Gastrointestinal: Reports abdominal pain (irregular contractions) Genitourinary: Reports pelvic pain, Reports Musculoskeletal: Reports low back pain Integumentary: Denies pruritus, Denies rash Neurological: Denies numbness, Denies weakness Past Medical History Past Medical History: No Reported History History of Any Multi-Drug Resistant Organisms: None Reported Past Surgical History: Tonsillectomy Additional Past Surgical History / Comment(s): SINUS SURGERY; [place] teeth Past Anesthesia/Blood Transfusion Reactions: No Reported Reaction Past Psychological History: No Psychological Hx Reported Smoking Status: Never smoker Past Alcohol Use History: None Reported Past Drug Use History: None Reported - Past Family History Mother Family Medical History: No Reported History Medications and Allergies Home Medications Medication Instructions Recorded Confirmed Type Cetirizine HCl [Zyrtec] 10 mg PO DAILY 07/24/16 09/15/19 History Kdh-Sehc-Rwijt Acid 1 cap PO DAILY 09/15/19 09/15/19 History [-U Capsule (formulary)] Allergies Allergy/AdvReac Type Severity Reaction Status Date / Time No Known Allergies Allergy Verified 10/27/19 18:48 Exam Osteopathic Statement: *. No significant issues noted on an osteopathic structural exam other than those noted in the History and Physical/Consult. HEENT: within normal limits Heart: regular rate and rhythm Lungs: clear to auscultation bilaterally Abdomen: Cervix: 1.5 cm/70%/-2 heart tones: 140's by doppler Extremities: neg. Savannah's Assessment and Plan (1) 39 weeks gestation of Status: Acute Code(s): Z3A.39 - 39 WEEKS GESTATION OF SNOMED Code(s): 60195299 Plan: Proceed with oxytocin induction of labor. Expectant management. Epidural if desired.
[2020-04-19] MEDS ORDERED: LIDOCAINE 0.5% (PF) 5 MG/ML (50 ML SDV) SQ PRN (00:22)
[2020-04-19] MEDS ORDERED: TERBUTALINE 1 MG/ML VIAL SQ PRN (00:22)
[2020-04-19] MEDS ORDERED: LIDOCAINE 1% (10MG/ML) FOR IV START INTRADERMA PRN (00:22)
[2020-04-19] MEDS ORDERED: OXYTOCIN 30 UNITS/500 ML NS 30 UNIT in SALINE 1 500ML.BAG IV SCH (00:22)
[2020-04-19] MEDS ORDERED: METHYLERGONOVINE 0.2 MG/ML 1 ML AMP IM PRN (00:22)
[2020-04-19] MEDS ORDERED: OXYTOCIN 10 UNIT/ML 1 ML VIAL IM PRN (00:22)
[2020-04-19] MEDS ORDERED: CARBOPROST TROMETHAMINE 250 MCG/ML 1 ML AMP IM PRN (00:22)
[2020-04-19] MEDS ORDERED: BUTORPHANOL 1 MG/ML 1 ML VIAL IV PRN (00:27)
[2020-04-19] MEDS: LACTATED RINGERS 1,000 ML IV SCH ×2 (00:31→04:02)
[2020-04-19 00:50] LABS: Basophils # (A) 0.1 k/uL (0-0.2); Basophils % (A) 0 %; Eosinophils # (A) 0.2 k/uL (0-0.7); Eosinophils % (A) 2 %; HCT 34.5 % (34.0-46.0); HGB 10.7 gm/dL (11.4-16.0); Hypochromasia Slight; Lymphocytes # (A) 2.3 k/uL (1.0-4.8); Lymphocytes % (A) 15 %; MCH 25.2 pg (25.0-35.0); MCHC 31.1 g/dL (31.0-37.0); MCV 80.8 fL (80.0-100.0); Mean Platelet Volume 6.9; Monocytes # (A) 0.6 k/uL (0-1.0); Monocytes % (A) 4 %; Neutrophils # (A) 12.6 k/uL (1.3-7.7); Neutrophils % (A) 78 %; Platelet Count 332 k/uL (150-450); RBC 4.27 m/uL (3.80-5.40); RDW 14.5 % (11.5-15.5)
[2020-04-19] MEDS ORDERED: SODIUM CHLORIDE 0.9% 100 ML BAG ONE (03:42)
[2020-04-19] MEDS ORDERED: ROPIVACAINE 5MG/ML 20ML VIAL ONE (03:42)
[2020-04-19] MEDS ORDERED: fentaNYL (PF) 50 MCG/ML 5 ML AMP ONE (03:42)
[2020-04-19] MEDS ORDERED: HYDROCORTISONE 2.5% RECTAL CREAM 30 GM TUBE RECTAL PRN (08:13)
[2020-04-19] MEDS ORDERED: BENZOCAINE/MENTHOL SPRAY 1 GM/SPRAY AEROSOL TOPICAL PRN (08:13)
[2020-04-19] MEDS ORDERED: diphenhydrAMINE 50 MG/ML 1 ML VIAL IVP PRN ×2 (08:13)
[2020-04-19] MEDS ORDERED: WITCH HAZEL 1 EACH MED..PAD TOPICAL PRN (08:13)
[2020-04-19] MEDS ORDERED: diphenhydrAMINE 25 MG CAP PO PRN (08:13)
[2020-04-19] MEDS ORDERED: LANOLIN CREAM 5 GM TUBE TOPICAL PRN (08:13)
[2020-04-19] MEDS ORDERED: diphenhydrAMINE 50 MG CAP PO PRN (08:13)
[2020-04-19] MEDS ORDERED: ZOLPIDEM 5 MG TAB PO PRN (08:13)
[2020-04-19] MEDS ORDERED: SIMETHICONE 80 MG CHEWABLE PO PRN (08:13)
[2020-04-19] MEDS ORDERED: OXYTOCIN 20 UNITS/1000 ML NS 1,000 ML IV SCH (08:15)
--- NOTE | 2020-04-19 08:17 | P.PROBDLV ---
Vaginal Delivery Note - . Vaginal Delivery Note: 29-year-old presented at 39 weeks and 1 day in active labor. Her water broke at 3:40 AM clear fluid noted. heart tones 130 with moderate variability and reactive. She was 57 m dilated at that time, 80% effaced, -2 station. She is jessica irregularly. She was uncomfortable and did get an epidural. Her cervix is completely dilated at 7:46 AM. She pushed, and delivered a viable male infant over intact perineum under epidural anesthesia at 7:58 AM. Head delivered OA, nuchal cord 1 delivered through, anterior shoulder delivered gentle downward guidance followed by posterior shoulder and rest of body. Nose and mouth bulb suctioned, cord clamped and cut, placed mother's abdomen. Apgars 9, 9, weight 8 lbs. 1 oz. Placenta delivered spontaneously, intact with three-vessel cord at 8 AM. Vagina, cervix, and perineum were inspected. Second-degree midline laceration was repaired with 3-0 Vicryl. Estimated blood loss 150 mL. Mother and baby in stable condition.
[2020-04-19 15:31] VITALS: TEMP 98.1
[2020-04-19] MEDS: IBUPROFEN 600 MG TAB PO PRN ×2 (17:33→23:39)
[2020-04-19] MEDS: SENNOSIDES-DOCUSATE SODIUM 1 EACH TAB PO SCH (20:01)
[2020-04-19] MEDS: ACETAMINOPHEN TAB 325 MG TAB PO PRN (20:33)
[2020-04-20] MEDS: IBUPROFEN 600 MG TAB PO PRN (05:58)
[2020-04-20 06:11] LABS: Basophils % (A) 0 %; Eosinophils # (A) 0.2 k/uL (0-0.7); Eosinophils % (A) 2 %; HCT 29.9 % (34.0-46.0); HGB 9.3 gm/dL (11.4-16.0); Hypochromasia Marked; Lymphocytes # (A) 2.8 k/uL (1.0-4.8); Lymphocytes % (A) 21 %; MCH 25.8 pg (25.0-35.0); MCHC 31.1 g/dL (31.0-37.0); Monocytes # (A) 0.5 k/uL (0-1.0); Monocytes % (A) 4 %; Neutrophils # (A) 9.9 k/uL (1.3-7.7); Neutrophils % (A) 72 %; Platelet Count 287 k/uL (150-450); RDW 14.2 % (11.5-15.5); WBC 13.7 k/uL (3.8-10.6)
[2020-04-20 08:23] VITALS: BP 129/80; PULSE 85; RESP 15
[2020-04-20] MEDS: SENNOSIDES-DOCUSATE SODIUM 1 EACH TAB PO SCH (08:26)
--- NOTE | 2020-04-20 09:27 | P.DS ---
Providers Date of admission: 04/19/20 00:07 Expected date of discharge: 04/20/20 Attending physician: Sophie Mendoza Primary care physician: Paul Pringleeldor - Discharge Diagnosis(es) (1) 39 weeks gestation of Current Visit: No Status: Acute Hospital Course: This is a 29-year-old female 2 para 1 at 39 and one sevenths weeks who presented with contractions. She did receive epidural anesthesia. She delivered vaginally a viable male infant on 04/19/2020 with scores of 9 at 1 minute and 9 at 5 minutes and weight of 8 lbs. 1 oz. Her course has been uncomplicated. Lochia is decreasing. Pain is well-controlled. She is breast-feeding without difficulty. I'll signs are stable. Abdomen is soft with fundus firm and nontender. Extremities show negative Homans. Impression is status post vaginal delivery day #1. Plan is to discharge home today. Routine instructions are given. She is advised follow-up in the office in 6 weeks for a check. She is advised to call the office if she has any further questions or concerns prior to her appointment time. She will be given a prescription for ibuprofen. She has a breast pump at home. Procedures: Spontaneous vaginal delivery of a viable male on 04/19/2020 Patient Condition at Discharge: Stable Plan - Discharge Summary New Discharge Prescriptions: New Ibuprofen [Motrin] 600 mg PO Q6HR PRN #60 tab PRN Reason: Mild Pain Or Fever >= 100.5 Continue [id number]-[id number]-Xkvyv Acid [-U Capsule (formulary)] 1 cap PO DAILY No Action Cetirizine HCl [Zyrtec] 10 mg PO DAILY Discharge Medication List Cetirizine HCl [Zyrtec] 10 mg PO DAILY 07/24/16 [History] Lka-Zmgo-Qjiuk Acid [-U Capsule (formulary)] 1 cap PO DAILY 09/15/19 [History] Ibuprofen [Motrin] 600 mg PO Q6HR PRN #60 tab 04/20/20 [Rx] Follow up Appointment(s)/Referral(s): Sophie Mendoza DO [Doctor of Osteopathic Medicine] - 6 Weeks Activity/Diet/Wound Care/Special Instructions: Instructions 1. Do not begin any exercise program for 3 weeks. 2. Do not resume sexual relations for 3 weeks or longer if uncomfortable. 3. You may take tub baths or showers at any time. 4. You may use tampons if desired after 3 weeks. 5. Keep the area of episiotomy (stitches) clean and dry. 6. If you are not nursing, wear a good fitting, supportive bra during the day and limit fluid intake for at least 1 week to prevent breast engorgement. 7. Call the office, [phone], within the next week to make appointment for your 6 week checkup if it has not already been made. 8. Report any of the following occurrences to the doctor promptly: a. Heavy, excessive bleeding b. Chills, fever c. Burning or frequency of urination d. Pain or redness and breasts if nursing e. Increasing pain or swelling in episiotomy (stitches). In addition to the above instructions, the following additional should be followed: 1. No heavy lifting or straining (exercising) until after 6 week checkup. 2. Keep abdominal incision clean and dry: You may wear a dressing if more comfortable. 3. Make office appointment for 10 days after going home or as instructed by her doctor. Discharge Disposition: HOME SELF-CARE
[2020-04-20] MEDS: ACETAMINOPHEN TAB 325 MG TAB PO PRN (10:11)
== END 2020-04-20 11:46 | disposition home or self-care (01) | DRG 807 ==
LOC: 4FBP 00:07
PROVIDERS: ADMIT Obstetrics & Gynecology; ATTEND Obstetrics & Gynecology
PROC: 00HU33Z Insertion of Infusion Device into Spinal Canal, Percutaneous Approach (ICD-10-PCS; principal; 2020-04-19)
PROC: 0KQM0ZZ Repair Perineum Muscle, Open Approach (ICD-10-PCS; principal; 2020-04-19)
PROC: 10E0XZZ Delivery of Products of Conception, External Approach (ICD-10-PCS; principal; 2020-04-19)
PROC: 3E0R3BZ Introduction of Anesthetic Agent into Spinal Canal, Percutaneous Approach (ICD-10-PCS; principal; 2020-04-19)
PROC: 3E033VJ Introduction of Other Hormone into Peripheral Vein, Percutaneous Approach (ICD-10-PCS; principal; 2020-04-19)
DX: O69.81X0 Labor and delivery complicated by cord around neck, without compression, not applicable or unspecified (principal); Z37.0 Single live birth; O70.1 Second degree perineal laceration during delivery; O99.62 Diseases of the digestive system complicating childbirth; K21.9 Gastro-esophageal reflux disease without esophagitis; Z3A.39 39 weeks gestation of pregnancy; Z79.899 Other long term (current) drug therapy
CPT/HCPCS: 85025; 86850; 86900; 86901

== ENCOUNTER 2022-11-13 00:18 | Emergency (ER) | payer OTHER ==
[2022-11-13 00:28] VITALS: TEMP 97.7
[2022-11-13] MEDS ORDERED: diphenhydrAMINE 50 MG CAP PO STA (00:41)
[2022-11-13] MEDS ORDERED: SODIUM CHLORIDE 0.9% 1,000 ML IV STA (00:41)
[2022-11-13] MEDS ORDERED: FAMOTIDINE 20 MG/2 ML VIAL IV STA (00:41)
[2022-11-13] MEDS ORDERED: methylPREDNISolone SOD SUCCI 125 MG/2 ML VIAL IV STA (00:41)
[2022-11-13] MEDS ORDERED: diphenhydrAMINE 50 MG/ML 1 ML VIAL IVP STA (00:50)
--- NOTE | 2022-11-13 00:50 | ED ---
General Adult HPI - General Chief complaint: Allergic Reaction Stated complaint: Allergic Reaction to medication Time Seen by Provider: 11/13/22 00:30 Source: patient, RN notes reviewed Mode of arrival: ambulatory - History of Present Illness Initial comments: This is a pleasant 32-year-old female who presents to the emergency Department with complaints of hives scattered on her face, trunk, extremities, and back. Patient states she was diagnosed with a ruptured tympanic membrane on Sunday and started on Cefdinir. States she developed a rash on Sunday for which she took Benadryl with some improvement. Reports rash returned and she went to urgent care Sunday where she was prescribed Zithromax to replace her Cefdinir and was given a steroid shot. States she took additional doses of Benadryl Sunday (last dose 1800). States findings have persisted and are worsening. Accompanied by itching discomfort. Denies swelling of the lips, mouth, or tongue, shortness of breath, wheezing, chest pain/tightness, nausea, or vomiting. - Related Data Home Medications Medication Instructions Recorded Confirmed Cetirizine HCl [Zyrtec] 10 mg PO DAILY PRN 07/24/16 11/13/22 Norgestimate-Ethinyl Estradiol 1 tab PO DAILY 11/13/22 11/13/22 0.25/35 Mg-Mcg Previous Rx's Medication Instructions Recorded hydrOXYzine HCL [Atarax] 50 mg PO Q6HR PRN #30 tab 11/13/22 predniSONE 50 mg PO DAILY 4 Days #4 tab 11/13/22 Allergies Allergy/AdvReac Type Severity Reaction Status Date / Time azithromycin Allergy Rash/Hives Verified 11/13/22 16:00 cefdinir Allergy Rash/Hives Verified 11/13/22 16:00 Review of Systems ROS Statement: Those systems with pertinent positive or pertinent negative responses have been documented in the HPI. ROS Other: All systems not noted in ROS Statement are negative. Past Medical History Past Medical History: No Reported History History of Any Multi-Drug Resistant Organisms: None Reported Past Surgical History: Tonsillectomy Additional Past Surgical History / Comment(s): SINUS SURGERY; [place] teeth Past Anesthesia/Blood Transfusion Reactions: No Reported Reaction Past Psychological History: No Psychological Hx Reported Smoking Status: Never smoker Past Alcohol Use History: None Reported Past Drug Use History: None Reported - Past Family History Mother Family Medical History: No Reported History General Exam General appearance: alert, in no apparent distress ENT exam: Present: normal oropharynx, mucous membranes moist, other (No evidence of angioedema) Neck exam: Absent: lymphadenopathy Respiratory exam: Present: normal lung sounds bilaterally. Absent: respiratory distress, wheezes, rales, rhonchi, stridor, chest wall tenderness, accessory muscle use Cardiovascular Exam: Present: regular rate, normal rhythm, normal heart sounds. Absent: systolic murmur, diastolic murmur, rubs, gallop, clicks GI/Abdominal exam: Present: soft, normal bowel sounds. Absent: distended, tenderness, guarding, rebound, rigid Neurological exam: Present: alert, oriented X3, CN II-XII intact Psychiatric exam: Present: normal affect, normal mood Skin exam: Present: warm, dry, intact, urticaria (Scattered mildly erythematous morbilliform rash on face, scalp, torso, extremities, and back) Course Vital Signs 11/13/22 11/13/22 00:19 01:59 Temperature 97.7 F Pulse Rate 116 H 89 Respiratory 18 15 Rate Blood Pressure 148/89 131/77 O2 Sat by Pulse 98 100 Oximetry - Reevaluation(s) Reevaluation #1: 11/13/22 01:55 Upon reassessment, patient reports feeling significantly improved. Erythema has diminished and distribution of rash minimized. She continues to have no respiratory symptoms. Discussed discharge plan of care and patient is agreeable. Medical Decision Making - Medical Decision Making 32-year-old female presents to the emergency department for evaluation of u rticarial rash she attributes to medication reaction. Upon exam, patient is noted to have morbilliform erythematous papules scattered on face, extremities, and torso. Lungs sounds are clear to auscultation. No wheezing. No angioedema. No facial swelling. No Shortness of breath. IV was placed and patient was given Benadryl, Pepcid, and Solu-Medrol with significant improvement. Laboratory studies were obtained and are unremarkable. Patient is advised to discontinue current antibiotic treatment and follow up with her PCP for further evaluation and discussion of appropriate antibiotic therapy. Return parameters were discussed in detail. Patient verbalizes understanding and agrees with this plan. Attending: Natalee. Was pt. sent in by a medical professional or institution? @ -No Did you speak to anyone other than the patient for history? @ -No Did you review nursing and triage notes? @ -Yes, agree Were old charts reviewed? @ -No Differential Diagnosis? @ -ALLERGIC reaction, medication reaction, rash, dermatitis, this is not meant to be an exhaustive list EKG interpreted by me (3pts min.)? @ -Not applicable X-rays interpreted by me (1pt min.)? @ -Not applicable CT interpreted by me (1pt min.)? @ -Not applicable U/S interpreted by me (1pt. min.)? @ -Not applicable What testing was considered but not performed? (CT, X-rays, U/S, labs)? Why? @ -Chest x-ray was considered, however patient is not experiencing any shortness of breath or wheezing. What meds were considered but not given? Why? @ -Albuterol was considered, but patient was not experiencing any shortness of breath or wheezing. Did you discuss the management of the patient with other professionals? @ -None Did you reconcile home meds? @ -No Was smoking cessation discussed for >3mins.? @ -No Was critical care preformed (if so, how long)? @ -No Were there social determinants of health that impacted care today? How? (Homelessness, low income, unemployed, alcoholism, drug addiction, transportation, low edu. Level, literacy, decrease access to med. care, correction, rehab)? @ -No Was there de-escalation of care discussed even if they declined? (Discuss DNR or withdrawal of care, Hospice)? @ -No What co-morbidities impacted this encounter? (DM, HTN, Smoking, COPD, CAD, Cancer, CVA, Hep., AIDS, mental health diagnosis, sleep apnea, morbid obesity)? @No Was patient admitted / discharged? @ -Discharged Undiagnosed new problem with uncertain prognosis? @ -None Drug Therapy requiring intensive monitoring for toxicity (Heparin, Nitro, Insulin, Cardizem)? @ -None Were any procedures done? @ -None Diagnosis/symptom? @ -ALLERGIC reaction Acute, or Chronic, or Acute on Chronic? @ -Acute Uncomplicated (without systemic symptoms) or Complicated (systemic symptoms)? @ -Uncomplicated Side effects of treatment? @ -Hyperglycemia associated with steroid use. Sedation associated with Benadryl. Exacerbation, Progression, or Severe Exacerbation] @ -No Poses a threat to life or bodily function? @ -No - Lab Data Result diagrams: 11/13/22 01:04 11/13/22 01:04 Lab Results 11/13/22 11/13/22 Range/Units 01:04 01:04 WBC 11.1 H (3.8-10.6) k/uL RBC 4.57 (3.80-5.40) m/uL Hgb 13.1 (11.4-16.0) gm/dL Hct 38.2 (34.0-46.0) % MCV 83.6 (80.0-100.0) fL MCH 28.6 (25.0-35.0) pg MCHC 34.2 (31.0-37.0) g/dL RDW 12.4 (11.5-15.5) % Plt Count 306 (150-450) k/uL MPV 7.5 Neutrophils % 86 % Lymphocytes % 9 % Monocytes % 3 % Eosinophils % 1 % Basophils % 0 % Neutrophils # 9.5 H (1.3-7.7) k/uL Lymphocytes # 1.0 (1.0-4.8) k/uL Monocytes # 0.3 (0-1.0) k/uL Eosinophils # 0.1 (0-0.7) k/uL Basophils # 0.0 (0-0.2) k/uL Sodium 140 (137-145) mmol/L Potassium 4.0 (3.5-5.1) mmol/L Chloride 110 H (98-107) mmol/L Carbon Dioxide 21 L (22-30) mmol/L Anion Gap 9 mmol/L BUN 10 (7-17) mg/dL Creatinine 0.54 (0.52-1.04) mg/dL Est GFR (CKD-EPI)AfAm >90 (>60 ml/min/1.73 sqM) Est GFR (CKD-EPI)NonAf >90 (>60 ml/min/1.73 sqM) Glucose 161 H (74-99) mg/dL Calcium 9.2 (8.4-10.2) mg/dL Total Bilirubin 0.4 (0.2-1.3) mg/dL AST 30 (14-36) U/L ALT 33 (4-34) U/L Alkaline Phosphatase 149 H (38-126) U/L Total Protein 7.2 (6.3-8.2) g/dL Albumin 4.2 (3.5-5.0) g/dL Disposition Clinical Impression: Allergic reaction Disposition: HOME SELF-CARE Condition: Stable Instructions (If sedation given, give patient instructions): Urticaria (ED) Additional Instructions: Take steroid as prescribed. Remember to avoid excessive intake of sugary foods. Begin taking Sunday morning. Take famotidine/Pepcid 20 mg once daily for the next 4 days. Take Benadryl only if needed for itching discomfort or return of hives. Follow-up with your PCP for a recheck on Sunday. Return to the emergency department with any new, worsening, or concerning sym ptoms. Prescriptions: predniSONE 50 mg PO DAILY 4 Days #4 tab Is patient prescribed a controlled substance at d/c from ED?: No Referrals: Paul Marrero DO [Primary Care Provider] - 1-2 days Time of Disposition: 01:58
[2022-11-13 01:16] LABS: Basophils % (A) 0 %; Eosinophils # (A) 0.1 k/uL (0-0.7); Eosinophils % (A) 1 %; HCT 38.2 % (34.0-46.0); HGB 13.1 gm/dL (11.4-16.0); Lymphocytes % (A) 9 %; MCH 28.6 pg (25.0-35.0); MCHC 34.2 g/dL (31.0-37.0); MCV 83.6 fL (80.0-100.0); Mean Platelet Volume 7.5; Monocytes # (A) 0.3 k/uL (0-1.0); Monocytes % (A) 3 %; Neutrophils # (A) 9.5 k/uL (1.3-7.7); Neutrophils % (A) 86 %; Platelet Count 306 k/uL (150-450); RBC 4.57 m/uL (3.80-5.40); RDW 12.4 % (11.5-15.5); WBC 11.1 k/uL (3.8-10.6)
[2022-11-13 01:34] LABS: ALT 33 U/L (4-34); AST 30 U/L (14-36); African American GFR (CKD) >90 (>60 ml/min/1.73 sqM); Albumin 4.2 g/dL (3.5-5.0); Alkaline Phosphatase 149 U/L (38-126); Anion Gap 9 mmol/L; Blood Urea Nitrogen 10 mg/dL (7-17); Calcium 9.2 mg/dL (8.4-10.2); Carbon Dioxide 21 mmol/L (22-30); Chloride 110 mmol/L (98-107); Glucose 161 mg/dL (74-99); Non-African American GFR(CKD) >90 (>60 ml/min/1.73 sqM); Sodium 140 mmol/L (137-145); Total Bilirubin 0.4 mg/dL (0.2-1.3); Total Protein 7.2 g/dL (6.3-8.2)
[2022-11-13 02:00] VITALS: BP 131/77; PULSE 89; RESP 15
== END 2022-11-13 02:07 | disposition home or self-care (01) ==
LOC: EC 00:18
DX: L27.0 Generalized skin eruption due to drugs and medicaments taken internally (principal); T36.1X5A Adverse effect of cephalosporins and other beta-lactam antibiotics, initial encounter; Z88.0 Allergy status to penicillin; Z88.1 Allergy status to other antibiotic agents
CPT/HCPCS: 36415; 80053; 85025; 99283; 96374; 96375; 96361; J1200; J2930

== ENCOUNTER 2022-11-13 14:35 | Emergency (ER) | payer OTHER ==
[2022-11-13] MEDS ORDERED: diphenhydrAMINE 50 MG/ML 1 ML VIAL IVP STA (15:05)
[2022-11-13] MEDS ORDERED: FAMOTIDINE 20 MG/2 ML VIAL IV STA (15:05)
[2022-11-13] MEDS ORDERED: methylPREDNISolone SOD SUCCI 125 MG/2 ML VIAL IV STA (15:05)
--- NOTE | 2022-11-13 15:06 | ED ---
General Adult HPI - General Source: patient, RN notes reviewed Mode of arrival: ambulatory Limitations: no limitations <Casey Morgan - Last Filed: 11/13/22 15:05> <Blayne Samano - Last Filed: 11/13/22 23:30> - General Stated complaint: Allergic reaction Time Seen by Provider: 11/13/22 15:05 - History of Present Illness Initial comments: 32-year-old female presents emergency Department chief complaint ALLERGIC reaction. Patient states she seen here yesterday for diffuse hives. Patient states she was recently placed on Ceftin and azithromycin. Patient states that she felt better after IV meds yesterday but went home states she started feeling very hot flushed feeling, heart racing. Patient states that she started having hives all over again on alleviated with oral medications. Patient has no difficult swallowing. Patient states she feels like her heart is racing, skipping at times. (Casey Morgan) - Related Data Home Medications Medication Instructions Recorded Confirmed Cetirizine HCl [Zyrtec] 10 mg PO DAILY PRN 07/24/16 11/13/22 Norgestimate-Ethinyl Estradiol 1 tab PO DAILY 11/13/22 11/13/22 0.25/35 Mg-Mcg Previous Rx's Medication Instructions Recorded hydrOXYzine HCL [Atarax] 50 mg PO Q6HR PRN #30 tab 11/13/22 predniSONE 50 mg PO DAILY 4 Days #4 tab 11/13/22 Allergies Allergy/AdvReac Type Severity Reaction Status Date / Time azithromycin Allergy Rash/Hives Verified 11/13/22 16:00 cefdinir Allergy Rash/Hives Verified 11/13/22 16:00 Review of Systems ROS Other: All systems not noted in ROS Statement are negative. <Casey Morgan - Last Filed: 11/13/22 15:05> ROS Other: All systems not noted in ROS Statement are negative. <Blayne Samano - Last Filed: 11/13/22 23:30> ROS Statement: Those systems with pertinent positive or pertinent negative responses have been documented in the HPI. Past Medical History Past Medical History: No Reported History History of Any Multi-Drug Resistant Organisms: None Reported Past Surgical History: Tonsillectomy Additional Past Surgical History / Comment(s): SINUS SURGERY; [place] teeth Past Anesthesia/Blood Transfusion Reactions: No Reported Reaction Past Psychological History: No Psychological Hx Reported Smoking Status: Never smoker Past Alcohol Use History: None Reported Past Drug Use History: None Reported - Past Family History Mother Family Medical History: No Reported History <Casey Morgan - Last Filed: 11/13/22 15:05> General Exam General appearance: alert, in no apparent distress Head exam: Present: atraumatic Eye exam: Present: normal appearance. Absent: scleral icterus, conjunctival injection, periorbital swelling ENT exam: Present: mucous membranes moist Neck exam: Present: full ROM. Absent: tenderness, meningismus Respiratory exam: Present: normal lung sounds bilaterally. Absent: respiratory distress, wheezes, rales, rhonchi, stridor, accessory muscle use Cardiovascular Exam: Present: tachycardia GI/Abdominal exam: Present: soft. Absent: distended, tenderness, rigid Extremities exam: Present: normal capillary refill. Absent: pedal edema, calf tenderness Back exam: Present: normal inspection, full ROM. Absent: rash noted Neurological exam: Present: alert, oriented X3, CN II-XII intact, normal gait Psychiatric exam: Present: normal affect, normal mood Skin exam: Present: warm, dry, intact, normal color, other (Face flushed). Absent: rash, cyanosis, diaphoretic, erythema, urticaria, petechiae, pallor <Blayne Samano - Last Filed: 11/13/22 23:30> Course Vital Signs 11/13/22 11/13/22 15:07 16:55 Temperature 98.4 F 98.6 F Pulse Rate 114 H 98 Respiratory 20 20 Rate Blood Pressure 164/98 146/92 O2 Sat by Pulse 96 97 Oximetry Medical Decision Making <Blayne Samano - Last Filed: 11/13/22 23:30> - Medical Decision Making Patient presents with complaints of rash after taking Zithromax yesterday which was prescribed to replace the cefdinir that she developed a rash from that she put on Sunday for ruptured eardrum. Patient states she has been taking Benadryl every 4 hours for Urticaria with no relief. Last dose was at 50mg at 1:30. She states that the rash has resolved but it keeps coming back. She states she did have some shortness of breath which has resolved. We did discuss the risk of pulmonary embolus as she is on control. She s he was offered blood work and a CT scan and declined states that she believes this is a drug reaction. Lung sounds are clear. Oxygen saturation 96%, no evidence of rash is time. Denies any difficulty swallowing. No tongue swelling. Patient has no medical history. Not a smoker. She will be switched to hydroxyzine, directed to stop taking the Benadryl. Start the prednisone as prescribed tomorrow. Follow-up with primary care doctor tomorrow. She is agreeable to this plan of care. Case discussed with Dr. Francis Was pt. sent in by a medical professional or institution? @No Did you speak to anyone other than the patient for history? @No Did you review nursing and triage notes? @Yes I agree Were old charts reviewed? @No Differential Diagnosis? @Urticaria, ALLERGIC reaction, adverse drug effect EKG interpreted by me (3pts min.)? @Not applicable X-rays interpreted by me (1pt min.)? @Not applicable CT interpreted by me (1pt min.)? @Not applicable U/S interpreted by me (1pt. min.)? @Not applicable What testing was considered but not performed? (CT, X-rays, U/S, labs)? Why? @CT was considered along with d-dimer patient refused states she does not believe this is a pulmonary embolism. Believes this is a drug reaction. Denies any shortness of breath or chest pain. What meds were considered but not given? Why? @I did consider steroids however patient was given a shot of Decadron today at previous visit and has a prednisone prescription to start tomorrow Did you discuss the management of the patient with other professionals? @No Did you reconcile home meds? @No Was smoking cessation discussed for >3mins.? @Nonsmoker Was critical care preformed (if so, how long)? @No Were there social determinants of health that impacted care today? How? (Homelessness, low income, unemployed, alcoholism, drug addiction, transportation, low edu. Level, literacy, decrease access to med. care, group home, rehab)? @None Was there de-escalation of care discussed even if they declined? (Discuss DNR or withdrawal of care, Hospice)? @No What co-morbidities impacted this encounter? (DM, HTN, Smoking, COPD, CAD, Cancer, CVA, Hep., AIDS, mental health diagnosis, sleep apnea, morbid obesity)? @None Was patient admitted / discharged? @Discharged Undiagnosed new problem with uncertain prognosis? @ [none] Drug Therapy requiring intensive monitoring for toxicity (Heparin, Nitro, Insulin, Cardizem)? @No Were any procedures done? @No Diagnosis/symptom? @Urticaria possible drug reaction Acute, or Chronic, or Acute on Chronic? @Acute Uncomplicated (without systemic symptoms) or Complicated (systemic symptoms)? @Uncomplicated Side effects of treatment? @ [none] Exacerbation, Progression, or Severe Exacerbation] @ [no] Poses a threat to life or bodily function? @ [no] (Blayne Samano) Disposition <Casey Morgan - Last Filed: 11/13/22 15:05> Is patient prescribed a controlled substance at d/c from ED?: No Time of Disposition: 16:02 <Blayne Samano - Last Filed: 11/13/22 23:30> Clinical Impression: Urticaria Disposition: HOME SELF-CARE Condition: Good Instructions (If sedation given, give patient instructions): Urticaria (ED) Additional Instructions: Increase fluid intake. Start the prednisone as prescribed tomorrow. Stop taking Benadryl and take hydroxyzine for hives, 50mg every 6 hours as needed. Prescriptions: hydrOXYzine HCL [Atarax] 50 mg PO Q6HR PRN #30 tab PRN Reason: Allergic Reaction Referrals: Paul Marrero DO [Primary Care Provider] - 1-2 days Gerald Guido MD [STAFF PHYSICIAN] - 1-2 days
[2022-11-13 15:08] VITALS: RESP 20
[2022-11-13 16:56] VITALS: BP 146/92; PULSE 98; TEMP 98.6
== END 2022-11-13 16:55 | disposition home or self-care (01) ==
LOC: EC 14:35
DX: L50.9 Urticaria, unspecified (principal); Z88.0 Allergy status to penicillin; Z88.1 Allergy status to other antibiotic agents
CPT/HCPCS: 99283; 96374; 96375 ×2; J1200; J2930